=== PATIENT | female | born 1960 | race Asian ===

== ENCOUNTER 2021-02-15 13:19 | Inpatient (IN) | payer OTHER ==
[~2021-02-15] VITALS: Ht 160 cm; Wt 57.3 kg
[2021-02-15 13:33] LABS: ABG A-A DIFF O2 190.5 mmHg (10-20.0); ABG BASE EXCESS 30.8 mmol/L (-2.0-3.0); ABG CARBOXYHEMOGLOBIN 0.5 % (0.0-1.5); ABG HCO3 49.9 mmol/L (22.0-26.0); ABG METHEMOGLOBIN 0.3 % (0.0-1.5); ABG OXYGEN CONTENT 16.4 mL/dL (15.0-23.0); ABG OXYGEN SATURATION 99.7 % (95.0-98.0); ABG OXYHEMOGLOBIN 98.9 % (94.0-100.0); ABG PH 7.225 (7.35-7.450); ABG TOTAL HEMOGLOBIN 11.1 G/dL (12.0-18.0); SOURCE, BLOOD GAS ARTERIAL; TEMPERATURE, FAHRENHEIT, BG 98.6 FAHREN (96.0-98.6)
[2021-02-15 13:34] LABS: ABG PCO2 145 mmHg (35-45); O2 DEVICE,BLOOD GAS NON REBREATHER (ROOM AIR); SITE, BLOOD GAS LFT BRACHIAL
[2021-02-15 13:44] LABS: EOSINOPHILS % (AUTO) 0 % (1.0-6.0); HEMATOCRIT 30.4 % (36-46); HEMOGLOBIN 9.5 g/dL (12.0-16.0); LYMPHOCYTES # (AUTO) 0.4 K/uL (1.0-4.8); LYMPHOCYTES % (AUTO) 4.6 % (22.0-44.0); MEAN CORPUSCULAR HEMOGLOBIN 33.7 pg (26.0-34.0); MEAN CORPUSCULAR HGB CONC 31.4 G/dL (31.0-37.0); MEAN CORPUSCULAR VOLUME 107 fL (80-100); MONOCYTES # (AUTO) 0.5 K/uL (0.1-1.0); MONOCYTES % (AUTO) 5.5 % (2.0-9.0); NEUTROPHILS # (AUTO) 7.7 K/uL (1.8-7.7); PLATELET COUNT (AUTO) 233 K/uL (150-450); RED BLOOD CELL COUNT(AUTO) 2.83 MIL/uL (4.00-5.20); RED CELL DISTRIBUTION WIDTH 16.6 % (11.5-14.5)
[2021-02-15 13:46] LABS: NEUTROPHILS % (AUTO) 89.9 % (40.0-70.0)
[2021-02-15 13:59] LABS: D-DIMER 2.1 mg/L FEU (0.00-0.50); INR 1.1 (0.9-1.1); PROTHROMBIN TIME 11.2 SEC (9.4-11.6)
[2021-02-15 14:04] LABS: CALCIUM, TOTAL 10.4 mg/dL (8.8-10.5); CHLORIDE 102 mmol/L (98-107); CREATININE 0.35 mg/dL (0.60-1.30); GLOMERULAR FILTR. RATE CALC > 60 mL/min (>60); GLUCOSE,RANDOM 114 mg/dL (70-110); POTASSIUM 4.3 mmol/L (3.5-5.1); SODIUM SERUM 148 mmol/L (136-145); UREA NITROGEN, BLOOD 19 mg/dL (7-18)
[2021-02-15 14:10] LABS: ALANINE AMINOTRANSFERASE 33 U/L (12-78); ALBUMIN 2.2 g/dL (3.4-5.0); ALKALINE PHOSPHATASE 144 U/L (46-116); ASPARTATE AMINOTRANSFERASE 31 U/L (15-37); BILIRUBIN,TOTAL 0.5 mg/dL (0.1-1.0); TOTAL PROTEIN, SERUM 7.3 g/dL (6.4-8.2)
[2021-02-15 14:28] LABS: ANION GAP -2 mmol/L (8-16); CARBON DIOXIDE 48 mmol/L (22-29)
[2021-02-15 14:37] LABS: LACTIC ACID 2.7 mmol/L (0.4-2.0)
[2021-02-15] MEDS ORDERED: 0.9% SODIUM CHLORIDE 10 ML SYRINGE IVP PRN (14:45)
[2021-02-15] MEDS ORDERED: ONDANSETRON HCL 4 MG/2 ML VIAL IVP PRN ×2 (14:45→15:00)
[2021-02-15] MEDS ORDERED: ACETAMINOPHEN 325 MG TABLET PO PRN ×2 (14:45→15:00)
[2021-02-15] MEDS ORDERED: BISACODYL 10 MG RECTAL RECTAL SUPPOSITORY PR PRN (15:00)
[2021-02-15] MEDS ORDERED: ZOLPIDEM TARTRATE 5 MG TABLET PO PRN (15:00)
[2021-02-15] MEDS ORDERED: MAGNESIUM HYDROXIDE SUSPENSION 30 ML UDCUP PO PRN (15:00)
[2021-02-15] MEDS ORDERED: AZITHROMYCIN 500 MG/NS 250 ML IV ONE (15:00)
[2021-02-15] MEDS ORDERED: HYDROCODONE/ACETAMINOPHEN 5-325 MG TABLET PO PRN (15:00)
[2021-02-15 15:09] LABS: COVID AG,FIA SOURCE NASOPHARYNGEAL
[2021-02-15 15:12] LABS: C-REACTIVE PROTEIN QUANT 9.24 mg/dL (0.00-0.30); FERRITIN 2044 ng/mL (8-252); LACTATE DEHYDROGENASE 345 U/L (81-234)
[2021-02-15 16:09] LABS: INFLUENZA TYPE A NEGATIVE FOR TYPE A (NEGATIVE); INFLUENZA TYPE B NEGATIVE FOR TYPE B (NEGATIVE)
[2021-02-15] MEDS ORDERED: SODIUM CHLORIDE 0.9% 500 ML IV ONE (17:33)
[2021-02-15 17:38] VITALS: BP 121/70
[2021-02-15] MEDS: HEPARIN SODIUM,PORCINE 5,000 UNITS/ML VIAL SQ SCH ×2 (17:51→23:45)
[2021-02-15] MEDS: CefTRIAXone 1 GM/DEXTROSE 50 ML IV SCH (18:26)
[2021-02-15 19:30] VITALS: BP 104/63
[2021-02-15] MEDS: DOCUSATE SODIUM 100 MG CAPSULE PO SCH (20:15)
[2021-02-15] MEDS: MORPHINE SULFATE 2 MG/ML SYRINGE IVP PRN (21:53)
[2021-02-15 23:30] VITALS: BP 110/63
[2021-02-16 03:50] VITALS: BP 97/52
[2021-02-16 07:21] VITALS: BP 115/66
[2021-02-16 08:04] LABS: BASOPHILS % (AUTO) 0.1 % (0.0-2.0); EOSINOPHILS % (AUTO) 0 % (1.0-6.0); HEMATOCRIT 30.8 % (36-46); HEMOGLOBIN 9.7 g/dL (12.0-16.0); LYMPHOCYTES # (AUTO) 0.2 K/uL (1.0-4.8); MEAN CORPUSCULAR HEMOGLOBIN 33.9 pg (26.0-34.0); MEAN CORPUSCULAR HGB CONC 31.4 G/dL (31.0-37.0); MEAN CORPUSCULAR VOLUME 108 fL (80-100); MONOCYTES # (AUTO) 0.5 K/uL (0.1-1.0); MONOCYTES % (AUTO) 6.7 % (2.0-9.0); NEUTROPHILS # (AUTO) 6.3 K/uL (1.8-7.7); PLATELET COUNT (AUTO) 206 K/uL (150-450); RED BLOOD CELL COUNT(AUTO) 2.85 MIL/uL (4.00-5.20); RED CELL DISTRIBUTION WIDTH 16.9 % (11.5-14.5)
[2021-02-16 08:34] LABS: CALCIUM, TOTAL 9.2 mg/dL (8.8-10.5); CHLORIDE 105 mmol/L (98-107); CREATININE 0.35 mg/dL (0.60-1.30); GLOMERULAR FILTR. RATE CALC > 60 mL/min (>60); GLUCOSE,RANDOM 97 mg/dL (70-110); POTASSIUM 5.3 mmol/L (3.5-5.1); SODIUM SERUM 153 mmol/L (136-145); UREA NITROGEN, BLOOD 24 mg/dL (7-18)
[2021-02-16 08:35] LABS: NEUTROPHILS % (AUTO) 90.2 % (40.0-70.0)
[2021-02-16] MEDS: HEPARIN SODIUM,PORCINE 5,000 UNITS/ML VIAL SQ SCH ×3 (08:53→23:36)
[2021-02-16] MEDS: MORPHINE SULFATE 2 MG/ML SYRINGE IVP PRN (08:54)
[2021-02-16 09:00] LABS: ANION GAP -2 mmol/L (8-16); CARBON DIOXIDE 50 mmol/L (22-29)
[2021-02-16] MEDS: DOCUSATE SODIUM 100 MG CAPSULE PO SCH ×2 (09:00→21:00)
[2021-02-16] MEDS: PANTOPRAZOLE SODIUM 40 MG DR TABLET PO SCH (09:00)
[2021-02-16 11:09] VITALS: BP 114/67
[2021-02-16] MEDS ORDERED: DEXTROSE 5%-WATER 500 ML IV ONE (13:00)
[2021-02-16 15:21] VITALS: BP 118/69
[2021-02-16] MEDS: CefTRIAXone 1 GM/DEXTROSE 50 ML IV SCH (17:12)
[2021-02-16] MEDS: AZITHROMYCIN 500 MG/NS 250 ML IV SCH (17:56)
[2021-02-16 19:34] VITALS: BP 128/71
[2021-02-16 23:41] VITALS: BP 127/75
[2021-02-17 04:27] VITALS: BP 115/74
[2021-02-17 06:46] LABS: BASOPHILS % (AUTO) 0.1 % (0.0-2.0); EOSINOPHILS % (AUTO) 0 % (1.0-6.0); HEMATOCRIT 30.5 % (36-46); HEMOGLOBIN 9.3 g/dL (12.0-16.0); LYMPHOCYTES # (AUTO) 0.2 K/uL (1.0-4.8); LYMPHOCYTES % (AUTO) 3.3 % (22.0-44.0); MEAN CORPUSCULAR HGB CONC 30.5 G/dL (31.0-37.0); MEAN CORPUSCULAR VOLUME 112 fL (80-100); MONOCYTES # (AUTO) 0.8 K/uL (0.1-1.0); MONOCYTES % (AUTO) 10.3 % (2.0-9.0); NEUTROPHILS # (AUTO) 6.6 K/uL (1.8-7.7); PLATELET COUNT (AUTO) 217 K/uL (150-450); RED BLOOD CELL COUNT(AUTO) 2.74 MIL/uL (4.00-5.20); RED CELL DISTRIBUTION WIDTH 17.4 % (11.5-14.5)
[2021-02-17 06:47] LABS: CALCIUM, TOTAL 8.8 mg/dL (8.8-10.5); CHLORIDE 108 mmol/L (98-107); CREATININE 0.51 mg/dL (0.60-1.30); GLOMERULAR FILTR. RATE CALC > 60 mL/min (>60); GLUCOSE,RANDOM 119 mg/dL (70-110); POTASSIUM 4.5 mmol/L (3.5-5.1); SODIUM SERUM 153 mmol/L (136-145); UREA NITROGEN, BLOOD 24 mg/dL (7-18)
[2021-02-17 07:00] LABS: NEUTROPHILS % (AUTO) 86.3 % (40.0-70.0)
[2021-02-17 07:16] LABS: ANION GAP -10 mmol/L (8-16); CARBON DIOXIDE 55 mmol/L (22-29)
[2021-02-17] MEDS: HEPARIN SODIUM,PORCINE 5,000 UNITS/ML VIAL SQ SCH ×3 (08:22→23:28)
[2021-02-17] MEDS: PANTOPRAZOLE SODIUM 40 MG DR TABLET PO SCH (09:00)
[2021-02-17] MEDS: DOCUSATE SODIUM 100 MG CAPSULE PO SCH ×2 (09:00→21:00)
[2021-02-17] MEDS: MORPHINE SULFATE 2 MG/ML SYRINGE IVP PRN ×3 (09:42→23:57)
[2021-02-17 11:03] VITALS: BP 114/64
[2021-02-17] MEDS ORDERED: MORPHINE SULFATE 100 MG/NS/PF 100 ML IV PRN (15:00)
[2021-02-17] MEDS: CefTRIAXone 1 GM/DEXTROSE 50 ML IV SCH (16:57)
[2021-02-17 17:47] VITALS: BP 115/68
[2021-02-17] MEDS: AZITHROMYCIN 500 MG/NS 250 ML IV SCH (18:40)
[2021-02-17 19:45] VITALS: BP 109/63
[2021-02-17 23:48] VITALS: BP 102/63
[2021-02-18 04:45] VITALS: BP 109/58
[2021-02-18 07:05] LABS: BASOPHILS % (AUTO) 0.1 % (0.0-2.0); EOSINOPHILS % (AUTO) 0 % (1.0-6.0); HEMATOCRIT 30.4 % (36-46); HEMOGLOBIN 9.2 g/dL (12.0-16.0); LYMPHOCYTES # (AUTO) 0.3 K/uL (1.0-4.8); LYMPHOCYTES % (AUTO) 3.5 % (22.0-44.0); MEAN CORPUSCULAR HEMOGLOBIN 34.2 pg (26.0-34.0); MEAN CORPUSCULAR HGB CONC 30.1 G/dL (31.0-37.0); MEAN CORPUSCULAR VOLUME 114 fL (80-100); MONOCYTES # (AUTO) 0.8 K/uL (0.1-1.0); NEUTROPHILS # (AUTO) 6.9 K/uL (1.8-7.7); PLATELET COUNT (AUTO) 198 K/uL (150-450); RED BLOOD CELL COUNT(AUTO) 2.68 MIL/uL (4.00-5.20); RED CELL DISTRIBUTION WIDTH 17.7 % (11.5-14.5)
[2021-02-18 07:13] LABS: NEUTROPHILS % (AUTO) 86.4 % (40.0-70.0)
[2021-02-18 07:28] LABS: CALCIUM, TOTAL 9.2 mg/dL (8.8-10.5); CHLORIDE 113 mmol/L (98-107); CREATININE 0.65 mg/dL (0.60-1.30); GLOMERULAR FILTR. RATE CALC > 60 mL/min (>60); GLUCOSE,RANDOM 82 mg/dL (70-110); POTASSIUM 4.9 mmol/L (3.5-5.1); UREA NITROGEN, BLOOD 29 mg/dL (7-18)
[2021-02-18 07:31] VITALS: BP 103/70
[2021-02-18 07:45] LABS: ANION GAP -5 mmol/L (8-16); CARBON DIOXIDE 56 mmol/L (22-29); SODIUM SERUM 164 mmol/L (136-145)
[2021-02-18] MEDS: DOCUSATE SODIUM 100 MG CAPSULE PO SCH ×2 (08:06→20:16)
[2021-02-18] MEDS: PANTOPRAZOLE SODIUM 40 MG DR TABLET PO SCH (08:06)
[2021-02-18] MEDS: HEPARIN SODIUM,PORCINE 5,000 UNITS/ML VIAL SQ SCH ×2 (08:16→17:02)
[2021-02-18] MEDS ORDERED: DEXTROSE 5%-WATER 500 ML IV ONE (09:45)
[2021-02-18 11:46] VITALS: BP 102/57
[2021-02-18 16:04] VITALS: BP 105/57
[2021-02-18] MEDS: CefTRIAXone 1 GM/DEXTROSE 50 ML IV SCH (17:02)
[2021-02-18] MEDS: AZITHROMYCIN 500 MG/NS 250 ML IV SCH (17:37)
[2021-02-18 19:26] VITALS: BP 100/55
[2021-02-18] MEDS ORDERED: ACETAMINOPHEN 650 MG RECTAL SUPPOSITORY PR PRN (20:00)
[2021-02-18 23:59] VITALS: BP 99/46
[2021-02-19] VITALS (8 sets, daily range): BP systolic 56–101; BP diastolic 42–62
[2021-02-19] MEDS: HEPARIN SODIUM,PORCINE 5,000 UNITS/ML VIAL SQ SCH ×3 (00:02→16:43)
[2021-02-19] MEDS: DOCUSATE SODIUM 100 MG CAPSULE PO SCH (08:24)
[2021-02-19] MEDS: PANTOPRAZOLE SODIUM 40 MG DR TABLET PO SCH (08:25)
[2021-02-19] MEDS: MORPHINE SULFATE 2 MG/ML SYRINGE IVP PRN (11:27)
[2021-02-19] MEDS ORDERED: DEXTROSE 5%-WATER 500 ML IV ONE (15:15)
[2021-02-19] MEDS: CefTRIAXone 1 GM/DEXTROSE 50 ML IV SCH (16:00)
[2021-02-19] MEDS ORDERED: DEXTROSE 5%-WATER 1,000 ML IV ONE (16:45)
[2021-02-19] MEDS ORDERED: ADENOSINE 3 MG/ML 2 ML VIAL IVP ONE (17:30)
[2021-02-19] MEDS: AZITHROMYCIN 500 MG/NS 250 ML IV SCH (18:01)
[2021-02-19] MEDS ORDERED: EPINEPHrine 1:10,000 [1 MG/10 ML] SYRINGE IVP ONE (18:45)
== END 2021-02-19 18:46 | DRG 720 ==
LOC: EMS 13:19 → EDBD 13:19 → 5N 15:51
PROVIDERS: ADMIT Internal Medicine; ATTEND Internal Medicine
PROC: 5A09357 Assistance with Respiratory Ventilation, Less than 24 Consecutive Hours, Continuous Positive Airway Pressure (ICD-10-PCS; principal; 2021-02-15)
PROC: 5A09357 Assistance with Respiratory Ventilation, Less than 24 Consecutive Hours, Continuous Positive Airway Pressure (ICD-10-PCS; 2021-02-16)
PROC: 5A09357 Assistance with Respiratory Ventilation, Less than 24 Consecutive Hours, Continuous Positive Airway Pressure (ICD-10-PCS; 2021-02-17)
PROC: 5A09357 Assistance with Respiratory Ventilation, Less than 24 Consecutive Hours, Continuous Positive Airway Pressure (ICD-10-PCS; 2021-02-18)
PROC: 5A09357 Assistance with Respiratory Ventilation, Less than 24 Consecutive Hours, Continuous Positive Airway Pressure (ICD-10-PCS; 2021-02-19)
DX: A41.9 Sepsis, unspecified organism (principal); N17.0 Acute kidney failure with tubular necrosis; J96.01 Acute respiratory failure with hypoxia; J96.02 Acute respiratory failure with hypercapnia; J18.9 Pneumonia, unspecified organism; E44.0 Moderate protein-calorie malnutrition; C78.01 Secondary malignant neoplasm of right lung; C78.02 Secondary malignant neoplasm of left lung; E87.2 Acidosis; I46.9 Cardiac arrest, cause unspecified; E87.1 Hypo-osmolality and hyponatremia; I50.9 Heart failure, unspecified; Z85.3 Personal history of malignant neoplasm of breast; Z66 Do not resuscitate; J91.0 Malignant pleural effusion; D64.9 Anemia, unspecified; Z20.822 Contact with and (suspected) exposure to COVID-19
CPT/HCPCS: 36600; 71045; 71250; 80048; 80053; 82728; 82805; 83605; 83615; 83880; 84145; 84484; 85025; 85379; 85610; 85730; 86140; 86850; 86900; 86901; 87040; 87804; 93005; 94660; 99285; J0153; J0171; J0456; J0696; J1644; J2270; J7040; J7060; 36415-L1; 36415-TC; U0003